=== PATIENT | male | born 1995 | race African-American/Black ===

== ENCOUNTER 2017-11-29 22:35 | Emergency (ER) | payer BC ==
[~2017-11-29] VITALS: Ht 180.3 cm; Wt 83.9 kg
[~2017-11-29 22:35] MED LIST: AMOXICILLIN 50500 M1 PO; DOXYCYCLINE 10100 MG PO; EPIPEN 2-P0.3 MG/0.3 IM; NAPROSYN500 MG PO; NORCO 5-325 TA1 EACH PO; PEPCID40 MG PO; PREDNISONE 5 MG5 M1; VISTARIL 25 MG25 M1 PO
[2017-11-29 22:39] VITALS: BP 122/75
[2017-11-29] MEDS ORDERED: ACNE MED PO (22:44)
[2017-11-29] MEDS ORDERED: NAPROSYN500 MG PO (23:46)
== END 2017-11-30 | disposition home or self-care (01) ==
LOC: ER 22:35
DX: S93.602A Unspecified sprain of left foot, initial encounter (principal); X58.XXXA Exposure to other specified factors, initial encounter; Y93.67 Activity, basketball; Y92.89 Other specified places as the place of occurrence of the external cause; Y99.8 Other external cause status

== ENCOUNTER 2018-04-19 21:48 | Emergency (ER) | payer BC ==
[~2018-04-19] VITALS: Ht 180.3 cm; Wt 90.7 kg
[~2018-04-19 21:48] MED LIST changes: +ACNE MED PO
[2018-04-19] MEDS ORDERED: MOBIC7.5 MG PO (22:21)
== END 2018-04-19 22:37 | disposition home or self-care (01) ==
LOC: ER 21:48
DX: M25.561 Pain in right knee (principal); W22.8XXA Striking against or struck by other objects, initial encounter; Y93.67 Activity, basketball; Y92.39 Other specified sports and athletic area as the place of occurrence of the external cause; Y99.8 Other external cause status

== ENCOUNTER 2019-12-12 20:51 | Emergency (ER) | payer OTHER ==
[~2019-12-12] VITALS: Ht 180.3 cm; Wt 88.5 kg
[~2019-12-12 20:51] MED LIST changes: +MOBIC7.5 MG PO
[2019-12-12 22:51] VITALS: BP 118/72
--- NOTE | 2019-12-14 19:53 | NUR ---
PATIENT NOTIFIED THAT COVID-19 TEST RETURNED POSITIVE. PATIENT STATES UNDERSTANDING.
== END 2019-12-12 22:54 | disposition home or self-care (01) ==
LOC: ER 20:51
DX: J06.9 Acute upper respiratory infection, unspecified (principal); R50.9 Fever, unspecified; Z79.899 Other long term (current) drug therapy; Z20.828 Contact with and (suspected) exposure to other viral communicable diseases